=== PATIENT | female | born 1995 | race Caucasian/White ===

== ENCOUNTER 2022-05-29 06:42 | Day surgery (SDC) | payer OTHER ==
[~2022-05-29] VITALS: Ht 170.2 cm; Wt 87.1 kg
[~2022-05-29 06:42] MED LIST: UNK ALLERGY MED
[2022-05-29] MEDS ORDERED: BUPIVACAINE-MPF 0.25% 30 ML VIAL INJ ONE (09:48)
[2022-05-29] MEDS ORDERED: LIDOCAINE/EPI MPF 1%1:200000 30 ML VIAL INJ ONE (09:48)
[2022-05-29] MEDS ORDERED: SEVOFLURANE 250 ML BTL INH ONE (10:07)
[2022-05-29] MEDS ORDERED: ONDANSETRON 4 MG/2 ML VIAL ONE (10:07)
[2022-05-29] MEDS ORDERED: fentaNYL citrate 0.05 MG/ML VIAL ONE (10:12)
[2022-05-29] MEDS ORDERED: PROPOFOL 200 MG/20 ML VIAL IV ONE ×2 (10:45→10:48)
[2022-05-29] MEDS ORDERED: SUCCINYLCHOLINE CHLORIDE 200 MG/10 ML VIAL IVP ONE (10:47)
[2022-05-29] MEDS ORDERED: METOCLOPRAMIDE 10 MG/2 ML INJ VIAL IVP PRN (11:05)
[2022-05-29] MEDS ORDERED: LACTATED RINGERS 1,000 ML IV SCH (11:05)
[2022-05-29] MEDS ORDERED: NACL 0.9% 1,000 ML IV SCH (11:05)
[2022-05-29] MEDS: HYDROmorphone 1 MG/ML AMP IVP PRN ×4 (11:05→11:35)
[2022-05-29] MEDS ORDERED: LABETALOL 20 MG/4 ML VIAL IVP PRN (11:06)
[2022-05-29] MEDS ORDERED: hydrALAZINE 20 MG/ML VIAL IVP PRN (11:07)
[2022-05-29] MEDS ORDERED: HYDROmorphone PFS 2 MG/ML SYR ONE (11:13)
== END 2022-05-29 12:24 | disposition home or self-care (01) ==
LOC: MMU 06:42 → MOR 06:42
PROVIDERS: ATTEND Surgery
DX: K64.8 Other hemorrhoids (principal); K21.9 Gastro-esophageal reflux disease without esophagitis; K58.9 Irritable bowel syndrome, unspecified; Z98.82 Breast implant status; Z20.822 Contact with and (suspected) exposure to COVID-19
CPT/HCPCS: 46260; 71046; 87426; 88304; J0330; J1170; J2001; J2405; J2704; J3010; J3490